=== PATIENT | male | born 1965 | race Caucasian/White ===

== ENCOUNTER → 2017-06-29 | Outpatient (CLI) | payer BC ==
[~2017-06-29] VITALS: Ht 177.8 cm; Wt 83.9 kg
[~2017-06-29] MED LIST: IBUPROFEN 200200 M1 PO; LANTUS SUBQ; LISINOPRIL20 MG PO; NOVOLOG100 UNIT/1 SUBQ
[2017-06-29 08:05] VITALS: BP 153/79
[2017-06-29 08:47] LABS: HEMATOCRIT 33.5 % (42.0-52.0); HEMOGLOBIN 11.8 gm/dL (14.0-18.0); MCH 28.9 pg (26.0-34.0); MCHC 35.2 g/dL (28.0-37.0); MCV 82.1 fL (80.0-100.0); RBC 4.08 mil/uL (4.50-6.00); WBC 7.1 thou/uL (4.0-11.0)
[2017-06-29 08:56] LABS: APTT 25.1 Seconds (24.5-32.8); INR 1.1; PROTIME 11.3 Seconds (9.3-11.4)
[2017-06-29 09:05] LABS: CALCIUM 9.3 mg/dL (8.5-10.1); CREATININE 0.8 mg/dL (0.7-1.3); POTASSIUM 4.2 mmol/L (3.5-5.1)
== END ==
LOC: SPEC 07:26 → SLEEPLAB 08:40
PROVIDERS: Radiology Vascular & Interventional Radiology
DX: Z53.9 Procedure and treatment not carried out, unspecified reason (principal); M48.50XA Collapsed vertebra, not elsewhere classified, site unspecified, initial encounter for fracture